=== PATIENT | male | born 1960 | race Caucasian/White ===

== ENCOUNTER 2021-05-21 19:09 | Emergency (ER) | payer OTHER ==
[~2021-05-21] VITALS: Ht 185.4 cm; Wt 100.0 kg
[2021-05-21] MEDS ORDERED: FAMCICLOVIR250 MG PO ×2 (20:13)
[2021-05-21] MEDS ORDERED: AMOXICILLIN500 MG PO ×2 (20:13)
[2021-05-21 20:43] VITALS: BP 130/77
== END 2021-05-21 20:43 | disposition home or self-care (01) | DRG 156 ==
LOC: ED 19:09
DX: B00.1 Herpesviral vesicular dermatitis (principal)